=== PATIENT | female | born 1995 | race Caucasian/White ===

== ENCOUNTER 2020-12-16 01:53 | Emergency (ER) | payer OTHER ==
[~2020-12-16 01:53] MED LIST: ADMELOG100 UNIT/1 SC; ATIVAN2 MG PO; BACTRIM DS TAB1 EACH PO; ELAVIL 50 MG TA50 MG PO; ENULOSE10 GM/15 M PO; HUMALOG100 UNIT/1 SC; IBUPROFEN800 MG PO; MINIPRESS1 MG PO; NEXIUM40 MG PO; OMEPRAZOLE20 MG PO; PHENERGAN 25 MG25 M1 PO; PYRIDIUM PO; SYNTHROID 25 M25 MCG PO; SYNTHROID100 MCG PO; VISTARIL 50 MG50 MG PO; ZOFRAN ODT4 MG PO
[2020-12-16 02:47] LABS: HEMOGLOBIN 14.1 gm/dl (12.3-15.3); RED BLOOD COUNT 5.15 M/UL (4.00-5.10); WHITE BLOOD COUNT 13.3 K/UL (4.5-11.0)
[2020-12-16 03:05] LABS: BUN/CREATININE RATIO 15 (0-10)
[2020-12-16] MEDS ORDERED: COMPAZINE10 MG PO (06:20)
[2020-12-16] MEDS ORDERED: COMPAZINE25 MG PR (06:20)
== END 2020-12-16 07:15 | disposition home or self-care (01) ==
LOC: ER1 01:53
PROVIDERS: Family Medicine
DX: R11.2 Nausea with vomiting, unspecified (principal); E10.65 Type 1 diabetes mellitus with hyperglycemia; Z79.899 Other long term (current) drug therapy; Z88.5 Allergy status to narcotic agent; Z88.8 Allergy status to other drugs, medicaments and biological substances; Z79.4 Long term (current) use of insulin
CPT/HCPCS: 80053; 80307; 81001; 82009; 82800; 82962; 84439; 84443; 85025; 93005; 96374; 96375; 96376; 99284; J0780; J1885; J2405

== ENCOUNTER → 2022-01-19 | Outpatient (CLI) | payer OTHER ==
[~2022-01-19] MED LIST changes: +COMPAZINE10 MG PO; +COMPAZINE25 MG PR
[2022-01-19 08:37] LABS: BUN/CREATININE RATIO 8 (0-10)
== END ==
LOC: CT 07:50
PROVIDERS: Internal Medicine
DX: R59.0 Localized enlarged lymph nodes (principal); E10.9 Type 1 diabetes mellitus without complications
CPT/HCPCS: 36415; 70491; 80053; Q9967